=== PATIENT | female | born 1960 | race Caucasian/White ===

== ENCOUNTER → 2016-10-20 | Outpatient (CLI) | payer OTHER ==
--- NOTE | 2016-10-20 10:04 | DX ---
Osseous Survey (22 Images) 8:16 a.m. Clinical History: 56-year-old female with a history of "smoldering myeloma." Rule out lytic lesions. Comparison Study: Osseous survey, February 20, 2014. Findings: Skull (PA and Lateral Views): There is no osteolytic lesion. Cervical Spine (AP and Lateral Upright Views): There is reversal of the normal cervical lordosis once again seen. Degenerative spondylosis and disk disease are noted at the C3-C4, C4-C5, C5-C6, and C6-C 7 levels. There is no osteolytic lesion. Thoracic Spine (AP and Lateral Upright Views): Trace levothoracic curvature is again noted. There is no osteolytic lesion. There is some minimal degenerative change. Lumbar Spine (AP and Lateral Upright Views): There are five non-ribbearing lumbar-type vertebral bod ies. Small ventral traction osteophytes are seen at several levels. There is no osteolytic lesion. PA Upright View of the Chest: There is no osteolytic rib lesion. The cardiac and mediastinal silhouet te is normal. Right and Left Humeri: There is no osteolytic lesion. Right and Left Forearms: There is no osteolytic lesion. Bilateral Hands: There is no osteolytic lesion. AP Upright Pelvis: Bowel gas obscures portions of the osseous anatomy, however, there is no definite osteolytic lesion. Right and Left Femora: There is some subtle rarefaction of the trabeculae along the inferomedial righ t intertrochanteric line, although there is no convincing osteolytic lesion. Right and Left Tibiae-Fibulae: There is no osteolytic lesion. There are some mild degenerative change s associated with the knees. Bilateral Feet: Bilateral hallux valgus deformities are seen, with some secondary degenerative osteoa rthritic changes. There is no new osteolytic lesion. Impression: There is no evidence of osseous metastatic disease.
== END ==
LOC: FIMAGING 08:11
PROVIDERS: ATTEND Internal Medicine Hematology & Oncology
DX: Z85.79 Personal history of other malignant neoplasms of lymphoid, hematopoietic and related tissues (principal)

== ENCOUNTER → 2016-11-01 | Outpatient (CLI) | payer OTHER ==
--- NOTE | 2016-11-03 10:09 | MR ---
MRI Myeloma Screen Without Contrast History: History of smoldering myeloma. Evaluate for lytic lesions. Technique: MRI was performed of the body with large [id number] images for screening of bone marrow . This included images of the spine, pelvis, humeri, femurs, and skull. Standard imaging sequences we re performed. Findings: Bone marrow of the skull is unremarkable without lesion. There is prominent red marrow in t he proximal femurs and proximal humeri and pelvis. Focal lytic lesion is not visualized. There is is diffuse signal intensity in the spine which is isointense to muscle on T1 and T2-weighted imaging. Th e signal intensity within the marrow of the spine is isointense to slightly hypointense to the disk o n the T1-weighted imaging. An 8 mm lesion is seen in the T10 vertebral body which is increased signal intensity on both T1 and T2-weighted imaging suggesting a benign hemangioma. No other focal lesion i s seen within the spine. No evidence for compression fracture. Spinal cord is normal in size and signal intensity. Mild multilevel degenerative disk and degenerativ e joint disease is seen in the cervical spine. Mild multilevel degenerative disk and degenerative jayson nt disease is seen in the lumbar spine. Limited evaluation of the brain is unremarkable. No evidence for soft tissue mass or abnormal fluid collection. Impression: There appears to be diffuse underlying prominent red marrow. There is a uniform appearanc e of the signal intensity of the spine which is lower in signal intensity than typical red marrow and a diffuse myeloproliferative disorder could be considered or hyperplastic red marrow.
== END ==
LOC: FIMAGING 12:08
PROVIDERS: ATTEND Internal Medicine Hematology & Oncology
DX: C90.00 Multiple myeloma not having achieved remission (principal); D47.2 Monoclonal gammopathy

== ENCOUNTER → 2017-02-23 | Outpatient (CLI) | payer OTHER | LOC: FIMAGING 08:46 | PROVIDERS: ATTEND Internal Medicine Hematology & Oncology | DX: Z12.31 Encounter for screening mammogram for malignant neoplasm of breast (principal) | CPT/HCPCS: G0202 ==

== ENCOUNTER → 2017-06-02 | Outpatient (CLI) | payer OTHER | LOC: BRMIMAGING 09:37 | PROVIDERS: ATTEND Physician Assistant | DX: Z13.820 Encounter for screening for osteoporosis (principal); Z78.0 Asymptomatic menopausal state; Z79.890 Hormone replacement therapy ==

== ENCOUNTER → 2017-06-12 | Outpatient (CLI) | payer OTHER | LOC: FIMAGING 09:58 | PROVIDERS: ATTEND Obstetrics & Gynecology Gynecology | DX: N63 Unspecified lump in breast (principal) ==

== ENCOUNTER → 2017-06-24 | Outpatient (CLI) | payer OTHER ==
[~2017-06-24] MED LIST: BUPIVACAINE 0.5% 10 ML SDV ONE; LIDO/EPI 1% **Not for Epidural 20 ML MDV ONE; LIDOCAINE 1% 300 MG/30 ML SDV ONE
== END ==
LOC: FIMAGING 07:11
PROVIDERS: ATTEND Internal Medicine
PROC: 0HBU3ZX Excision of Left Breast, Percutaneous Approach, Diagnostic (ICD-10-PCS; principal; 2017-06-24)
DX: N60.12 Diffuse cystic mastopathy of left breast (principal)
CPT/HCPCS: G0206

== ENCOUNTER → 2017-09-22 | Outpatient (CLI) | payer OTHER | LOC: FIMAGING 12:54 | PROVIDERS: ATTEND Internal Medicine Hematology & Oncology | DX: C90.00 Multiple myeloma not having achieved remission (principal) ==

== ENCOUNTER → 2018-08-02 | Outpatient (CLI) | payer OTHER | LOC: FIMAGING 08:02 | PROVIDERS: ATTEND Nurse Practitioner | DX: C90.00 Multiple myeloma not having achieved remission (principal); D47.2 Monoclonal gammopathy ==

== ENCOUNTER → 2018-08-13 | Outpatient (CLI) | payer OTHER | LOC: FIMAGING 07:30 | PROVIDERS: ATTEND Physician Assistant Medical | DX: Z12.31 Encounter for screening mammogram for malignant neoplasm of breast (principal) ==

== ENCOUNTER → 2019-03-03 | Outpatient (CLI) | payer OTHER | LOC: FIMAGING 11:07 ==